=== PATIENT | female | born 1965 | race Two or more races ===

== ENCOUNTER 2025-01-08 12:45 | Emergency (ER) | payer MEDICAID, SELFPAY ==
[2025-01-08 12:46] VITALS: BMI 21.1
--- NOTE | 2025-01-08 13:04 | XR_ITS ---
Examination: Foot bilateral, 6 views Technique: AP, oblique, lateral views each foot total 6 views Date and time of exam: January 08, 2025 1307 hours INDICATIONS: Bilateral foot swelling and pain beginning 2 weeks ago. FINDINGS: Severe osteopenia Soft tissue vascular calcification Advanced narrowing first metatarsophalangeal joints bilaterally Bilateral pes planus No gema cortical bone obstruction IMPRESSION: Severe osteopenia No gema cortical bone destruction No acute fractures Severe pes planus
[2025-01-08 13:05] VITALS: BP 191/109; BP 199/129; PULSE 102; RESP 16; TEMP 36.9; O2SAT 99
--- NOTE | 2025-01-08 13:05 | PD.EDRME ---
Rapid Medical Screening Exam RME Arrival date/time: 01/08/25 12:45 59-year-old female with a history of type 2 diabetes, hypertension, hyperlipidemia presents to the emergency room with a chief complaint of bilateral diabetic foot ulcers. Patient was sent by her primary care provider to rule out osteomyelitis. I have greeted and performed a focused initial assessment of this patient. A comprehensive ED assessment and evaluation of the patient, analysis of all test results, and completion of the medical decision making process will be conducted by additional ED providers. Chief Complaint: Extremity Problem,Nontraumatic Time Seen by Provider: 01/08/25 12:52 Vital signs reviewed by provider: Yes
[2025-01-08 13:47] LABS: Basophils # (Auto) 0.1 Thou/mm3 (0.0-0.2); Basophils % (Auto) 1 % (0-2.5); Eosinophils # (Auto) 0.4 Thou/mm3 (0.0-0.5); Eosinophils % (Auto) 3 % (0-10); Hematocrit 33.5 % (36.0-46.0); Hemoglobin 11.3 g/dL (12.0-16.0); Immature Granulocytes % (Auto) 0 % (0-0); Immature Granulocytes Auto 0.04 Thou/mm3 (0.00-0.00); Lymphocytes # (Auto) 3.5 Thou/mm3 (1.0-4.8); Lymphocytes % (Auto) 27 % (10-50); Mean Corpuscular HGB Conc 33.7 g/dl (31.0-37.0); Mean Corpuscular Hemoglobin 28.8 pg (25.0-35.0); Mean Corpuscular Volume 86 fL (80-100); Monocytes # (Auto) 0.5 Thou/mm3 (0.0-0.8); Monocytes % (Auto) 4 % (0-12); Neutrophils # (Auto) 8.8 Thou/mm3 (1.8-7.7); Neutrophils % (Auto) 66 % (37-80); Nucleated Red Blood Cell % 0 /100 WBC (0); Platelet Count 424 Thou/mm3 (140-440); RDW Standard Deviation 39.2 fL (36.4-46.3); Red Blood Count 3.92 Miln/mm3 (4.00-5.20); White Blood Count 13.3 Thou/mm3 (3.6-11.0)
[2025-01-08 14:03] LABS: Collection Type, Urine Clean Catch
--- NOTE | 2025-01-08 14:14 | PC.NURSE ---
nax1 1400
[2025-01-08 14:17] LABS: Sed Rate (ESR) 92 mm/hr (0-30)
[2025-01-08 14:18] LABS: Alanine Aminotransferase < 7 U/L (10-49); Albumin, Serum 4.9 gm/dL (3.5-5.0); Albumin/Globulin Ratio 1.4 (1.2-2.2); Alkaline Phosphatase 124 U/L (46-116); Anion Gap 10 (7-16); Aspartate Amino Transferase 11 U/L (0-34); BUN/Creatinine Ratio 17 Ratio (12-20); Bilirubin,Total 0.6 mg/dL (0.3-1.2); Blood Urea Nitrogen 15 mg/dL (9-23); C-Reactive Protein 2.1 mg/dL (0.0-0.9); Calcium 10.3 mg/dL (8.3-10.6); Calcium (Corrected) 10.3 mg/dL (8.5-10.1); Carbon Dioxide 24.9 mMol/L (20.0-31.0); Chloride 102 mMol/L (98-107); Creatinine (Component) 0.9 mg/dL (0.6-1.3); Estimated Creatinine Clearance 48.3 mL/min (>60); Globulin 3.6 gm/dL (2.3-3.5); Glucose 200 mg/dL (74-106); Osmolality,Calculated 280 (275-295); Potassium 3.6 mMol/L (3.4-5.1); Procalcitonin 0.07 ng/ml (0.0-0.49); Sodium 137 mMol/L (136-145); Total Protein 8.5 gm/dL (5.7-8.2); eGFR > 60 See Note
[2025-01-08 14:28] LABS: Bacteria,Urine 4+; Bilirubin,Urine Negative (Negative); Blood,Urine 1+ (Negative); Clarity,Urine Turbid (Clear/Hazy); Color,Urine Lt-Yellow (Lt Yel-Yel); Glucose, Urine 2+ (Negative); Ketones,Urine Negative (Negative); Leukocyte Esterase,Urine Positive (Negative); Nitrite,Urine Negative (Negative); Protein,Urine 2+ (Neg - Trace); RBC,Urine 18 /hpf (0-3); Specific Gravity,Urine 1.009 (1.001-1.035); Squamous Epithelial Cell,Urine 33 /hpf (0-5); Urobilinogen,Urine Negative mg/dL (0.0-1.0); WBC,Urine 440 /hpf (0-5)
[2025-01-08 15:17] VITALS: BP 171/95; PULSE 99
[2025-01-08] MEDS: cloNIDine HCL 0.1 MG TABLET PO (15:17)
--- NOTE | 2025-01-08 16:25 | XR_ITS ---
Examination: CTA abdominal aorta iliofemoral runoff. 2-D sagittal coronal reconstructions. 3-D reconstructions, vascular 25 1833 hrs. Indications: Left leg nonhealing ulcers this week Technique: Multiple CTA images of the abdominal aorta iliofemoral runoff arterial vessels, 2.0 mm slice thickness, post intravenous administration 100 cc [id number] 2-D sagittal coronal reconstructions. 3-D reconstructions, vascular 3-D postprocessing, including vascular maximum intensity projection images, 3-D volume rendering Low dose protocols were performed. One or more of the following dose reduction techniques were used; automated exposure control, adjustment of the mA and/or KV according to patient size, use of iterative reconstruction technique. Findings: Fatty liver Suspicious for small gallstones Common bile duct is enlarged 10 mm No pancreatic or adrenal mass No hydronephrosis Abdominal aorta is not enlarged 70% stenosis proximal right renal artery No bowel obstruction No pericecal inflammatory change 3 cm fat-containing umbilical hernia Air in the urinary bladder Atrophic uterus Intact common iliac and external iliac and common femoral arteries 90% stenosis proximal right superficial femoral artery 70% stenosis mid right superficial femoral artery 90% stenosis mid to distal right superficial femoral artery Occlusion over 15 mm distal right superficial femoral artery and a more distal total occlusion and short segment Attenuated popliteal artery Occlusion origins right anterior tibial and posterior tibial arteries with multiple occlusions throughout all 3 trifurcation arterial vessels 90% stenosis proximal left superficial femoral artery 90% stenosis mid left superficial femoral artery 10 mm occlusion distal left superficial femoral artery Attenuated popliteal artery Occlusions at the origins of both left anterior tibial posterior tibial arteries with multiple total occlusions throughout the trifurcation vessels Impression: Multiple high-grade stenoses superficial femoral arteries Severe multiple occlusions right and left anterior tibial posterior tibial and main continuation trunk 70% stenosis proximal right renal artery Suspicious for gallstones with enlarged common bile duct 10 mm, recommend hepatobiliary sonography follow-up
--- NOTE | 2025-01-08 16:26 | EDNOTE_ITS ---
ED Extremity Problem RME/HPI General Chief complaint: Extremity Problem,Nontraumatic Stated complaint: LEFT FOOT CELLULITIS, R/O OSTEO SENT BY MD Time Seen by Provider: 01/08/25 12:52 Arrival date/time: 01/08/25 12:45 RME / HPI RME / HPI Narrative: 59-year-old female with a history of type 2 diabetes, hypertension, hyperlipidemia presents to the emergency room with a chief complaint of bilateral diabetic foot ulcers more on the third and fourth toes on the left. Is been ongoing for more than 2 weeks. Patient denies trauma. Denies any other complaints no medication was taken prior to arrival. Patient was sent by her primary care provider to rule out osteomyelitis. Patient denies any fever. Patient is ambulatory Related Data Previous Rx's ?Medication ?Instructions ?Recorded ondansetron HCl 4 mg tablet 4 mg PO QID PRN nausea and 09/24/19 (Zofran) vomiting #14 tabs ibuprofen 600 mg tablet 600 mg PO TID #30 tabs 01/07 oxycodone-acetaminophen 5 mg-325 1 tab PO Q6H PRN pain , severe #10 01/07/22 mg tablet (Percocet) tabs acetaminophen 300 mg-codeine 30 mg 1 tab PO BID PRN pa in #20 tabs 01/08/25 tablet doxycycline hyclate 100 mg tablet 100 mg PO BID #20 ta bs 01/08/25 pentoxifylline 400 mg 400 mg PO TID #30 tabs 01/08 tablet,extended release Allergies Allergy/AdvReac Type Severity Reaction Status Date / Time codeine AdvReac Mild VOMITS Verified 01/08/25 12:47 Review of Systems Review of Systems Narrative Review of Systems: Review of system reviewed and within normal limits except mentioned in HPI ED Exam Narrative Physical exam: VITAL SIGNS: Reviewed. GENERAL APPEARANCE: Alert and interactive, follows commands, no acute distress, HEAD AND FACE: Non-traumatic. ENT: PERRL, pink conjunctivitis, eyelid no trauma, Mucous membrane moist. 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 CHEST: No tenderness, no crepitus, no paradoxical movement, no retractions. LUNGS: Clear, well ventilated, symmetric, no rales, no wheezing, no ronchi, no stridor, good breath sounds bilaterally. HEART: Regular rate, regular rhythm, no murmur, no gallops. ABDOMEN: Soft, positive bowel sounds, nondistended, no guarding, nontender, no rebound, no masses, RECTAL: Deferred. GENITAL: Deferred. NEUROLOGICAL: Gross motor function intact sensory function intact, Appropriate for age. MUSCULOSKELETAL: low back nontender, full range of motion. EXTREMITIES: Bilateral foot colder to touch as compared to the leg, multiple chronic changes on the skin and toes on the bilateral foot, chronic wound noted on the third and fourth toes left no gangrene noted nontender, full range of motion. Capillary refill is sluggish. SKIN: Color pink, dry, no rash, no lacerations, no abrasions, no contusions. LYMPHATICS: Deferred. Course Quality Measures none Orders Category Date Time Status CT Screening NOW Care 01/08/25 16:[address] angio abd ilio fem runoff Stat Exams 01/08/25 16:25 Completed XR foot comp BI min 3V Stat Exams 01/08/25 13:04 Completed Blood Culture (Lab) Stat Lab 01/08/25 13:36 Received CBC Stat Lab 01/08/25 13:36 Completed CMP [Comprehensive Metabolic Panel] Stat Lab 01/08/25 13:36 Completed CRP [C-Reactive Protein] Stat Lab 01/08/25 13:36 Completed ESR [Sed Rate (ESR)] Stat Lab 01/08/25 13:36 Completed Lactate (Lactic Acid) Stat Lab 01/08/25 13:36 Completed Procalcitonin Stat Lab 01/08/25 13:36 Completed UA [Urinalysis] Stat Lab 01/08/25 13:45 Completed Urine Culture Stat Lab 01/08/25 13:45 Received Piper/Tazo 3.375 gm [Zosyn] Med 01/08/25 16:26 Discontinued 3.375 gm in 50 ml IV X1 Vancomycin Inj 1,000 mg Med 01/08/25 16:25 Discontinued Sodium Chloride 0.9% 250 ml [Ns] 250 ml IV X1 cloNIDine HCL [Catapres] Med 01/08/25 13:04 Discontinued 0.1 mg PO X1 ONE Vital Signs Vital signs: Vital Signs Temperature 98.5 F 01/08/25 13:05 Pulse Rate 102 H 01/08/25 13:05 Respiratory Rate 16 01/08/25 13:05 Blood Pressure 199/129 H 01/08/25 13:05 Pulse Oximetry (%) 99 01/08/25 13:05 Oxygen Delivery Method Room Air 01/08/25 13:05 Extremity Problem [facility] Narrative MDM Narrative:: 59-year-old female with a history of type 2 diabetes, hypertension, hyperlipidemia presents to the emergency room with a chief complaint of bilateral diabetic foot ulcers more on the third and fourth toes on the left. Is been ongoing for more than 2 weeks. Patient denies trauma. Denies any other complaints no medication was taken prior to arrival. Patient was sent by her primary care provider to rule out osteomyelitis. Patient denies any fever. Patient is ambulatory CBC showed leukocytosis of 13.3 ESR of 92 creatinine was noted to be normal C- reactive protein 2.1 urinalysis positive for UTI versus dirty collection due to abundant epithelial cells. X-ray of the foot showed Severe osteopenia No gema cortical bone destruction No acute fractures Severe pes planus CTA of the abdomen with iliofemoral runoff showed Multiple high-grade stenoses superficial femoral arteries Severe multiple occlusions right and left anterior tibial posterior tibial and main continuation trunk 70% stenosis proximal right renal artery Suspicious for gallstones with enlarged common bile duct 10 mm, recommend hepatobiliary sonography follow-up Patient was given copy of her CT and angiogram of the abdomen with iliofemoral runoff and advised her to closely follow-up with PCP tomorrow and for referral to vascular surgeon for further management of the multiple arterial occlusions. Currently patient's foot is not cold or ischemic. Patient will be sent home on antibiotic for foot infection. Patient stable for discharge home. Patient data External records reviewed:: None Clinical information provided by:: patient and family Social determinants that could affect healthcare access:: none Patient has the following chronic illnesses:: Diabetes mellitus, hypertension How is presenting disease/condition affected by chronic disease/condition?: e xacerbated by Evaluation data The following diagnostics were reviewed and interpreted by me:: lab results, radiology exam(s) and EKG tracing(s) Lab and/or radiology exams considered but not ordered:: None Interpretation Summary: See results in MDM Medications / Prescriptions Medications or Prescriptions considered but not ordered:: None Medication administrations:: Medication Administration History Discontinued Medications Clonidine (Clonidine Hcl 0.1 Mg Tablet) 0.1 mg PO X1 ONE Stop: 01/08/25 13:05 Last Admin: 01/08/25 15:17 Dose: 0.1 mg Documented By: OA Vancomycin HCl 1,000 mg/ (Sodium Chloride) 250 mls @ 150 mls/hr IV X1 ONE Stop: 01/08/25 18:04 Last Admin: 01/08/25 17:53 Dose: 150 mls/hr Documented By: ED Piperacillin/Tazobactam/Dextrose (Zosyn) 3.375 gm in 50 mls @ 100 mls/hr IV X1 ONE Stop: 01/08/25 16:55 Last Infusion: 01/08/25 17:42 Dose: Infused Documented By: Admin: 01/08/25 17:08 Dose: 100 mls/hr Documented By: RD IV Zosyn and Vanco IV. Patient was also given Procardia and clonidine. Consultations Consultation(s) initiated? (list below): No Diagnosis Extremity Problem Differential Diagnosis: other (Diabetic foot infection, peripheral arterial disease,) Most likely diagnosis given after review of the tests above:: Diabetic foot infection, peripheral arterial disease Admission Indicated Admission indicated?: not indicated Explain why admission is indicated or not indicated:: Stable Admission Request Was there a request for admission?: No Disposition Plan Disposition Plan: Discharge Discharge Attestation Discharge Attestation: The patient and all family members were given an opportunity to ask questions and understood the discharge instructions. Discharge instructions specifically effects, indications for sooner follow up or return to the emergency department, and the expected course of current diagnosis. Patient condition: Stable Discharge Plan Plan Patient Disposition: HOME (Self Care) Disposition Comment: stable Prescriptions/Referrals Prescriptions/Med Rec: New doxycycline hyclate 100 mg tablet 100 mg PO BID Qty: 20 0RF pentoxifylline 400 mg tablet extended release 400 mg PO TID Qty: 30 0RF Rx Instructions: must administer with a meal/food acetaminophen-codeine 300-30 mg tablet 1 tab PO BID PRN (Reason: pain) Qty: 20 0RF No Action ondansetron HCl [Zofran] 4 mg tablet 4 mg PO QID PRN (Reason: nausea and vomiting) Qty: 14 0RF ibuprofen 600 mg tablet 600 mg PO TID Qty: 30 0RF oxycodone-acetaminophen [Percocet] 5-325 mg tablet 1 tab PO Q6H MDD 4 PRN (Reason: pain, severe) Qty: 10 0RF Referrals: Sukhdev Rogers MD [Primary Care Provider] - In 1 week Problem List Clinical Impression: Diabetic foot infection, Peripheral arterial disease Patient/Caregiver Discharge Instructions Discharge Activity: activity as tolerated Education Materials: Diabetes PAD Additional Instructions: Thank you for the opportunity for serving you today. You are stable for discharged . You are advised to: Follow-up with your PCP in 1 to 2 days and asked for referral to vascular surgeon and director diabetes Return to ED for worsening of symptoms Increase oral fluids Take medication as prescribed Print Language: Greek Stand Alone Forms: Korin Award Info., Patient Portal Info Letter PA/PICTURES EDITOR Supervising Physician PA/PICTURES EDITOR Supervising Physician: MD Ifrah
[2025-01-08 16:33] VITALS: BP 157/93; PULSE 100; RESP 14; TEMP 36.8; O2SAT 96
[2025-01-08] MEDS: PIPER/TAZO 3.375 GM 3.375 GM/50 ML BAG IV (17:08)
[2025-01-08] MEDS: Vancomycin Inj 1,000 MG in SODIUM CHLORIDE 0.9% 250 ML 250 ML 150 MG IV (17:53)
--- NOTE | 2025-01-08 18:07 | PC.NURSE ---
Pt. here to room 8 pt. states she has had edema to left foot X 2 weeks, pt. has +2 pitting edema to left foot, pt. has a wound with canas colored drainage that is foul smelling.
[2025-01-08 18:23] VITALS: BP 119/67; PULSE 75; RESP 16; TEMP 36.7; O2SAT 96
[2025-01-08 20:39] VITALS: BP 152/87; PULSE 93; RESP 14; TEMP 36.8; O2SAT 97
== END 2025-01-08 20:40 | disposition home or self-care (01) ==
PROVIDERS: Nurse Practitioner Family; Emergency Provider Emergency Medicine; PCP Family Medicine
DX: E11.628 Type 2 diabetes mellitus with other skin complications (principal); L08.9 Local infection of the skin and subcutaneous tissue, unspecified; E11.51 Type 2 diabetes mellitus with diabetic peripheral angiopathy without gangrene; I70.203 Unspecified atherosclerosis of native arteries of extremities, bilateral legs; M85.879 Other specified disorders of bone density and structure, unspecified ankle and foot; M21.40 Flat foot [pes planus] (acquired), unspecified foot; I70.1 Atherosclerosis of renal artery; I10 Essential (primary) hypertension; H54.62 Unqualified visual loss, left eye, normal vision right eye
CPT/HCPCS: 36415; 73630; 75635; 80053; 81001; 83605; 84145; 85025; 85652; 86140; 87040; 87077; 87086; 87186; 96365; 96366; 96367; 99285; A4649; J2543; J3371; J7050; Q9967; A9270

== ENCOUNTER → 2025-02-20 | Outpatient (CLI) | payer MEDICAID, SELFPAY | END | disposition home or self-care (01) | PROVIDERS: PCP Surgery Vascular Surgery; Referring Provider Surgery Vascular Surgery; Visit Provider Surgery | DX: I96 Gangrene, not elsewhere classified (principal); L97.522 Non-pressure chronic ulcer of other part of left foot with fat layer exposed; S91.301A Unspecified open wound, right foot, initial encounter; S91.302A Unspecified open wound, left foot, initial encounter; X58.XXXA Exposure to other specified factors, initial encounter; E11.40 Type 2 diabetes mellitus with diabetic neuropathy, unspecified; I10 Essential (primary) hypertension; I73.9 Peripheral vascular disease, unspecified; E11.52 Type 2 diabetes mellitus with diabetic peripheral angiopathy with gangrene; Z79.84 Long term (current) use of oral hypoglycemic drugs; R60.0 Localized edema | CPT/HCPCS: 11042; 99212; A9270; G0463 ==

== ENCOUNTER → 2025-02-23 | Outpatient (CLI) | payer MEDICAID, SELFPAY ==
--- NOTE | 2025-02-23 12:00 | XR_ITS ---
Examination: Foot bilateral, 6 views Technique: AP, oblique, lateral views each foot total 6 views Date and time of exam: February 23, 2025 1327 hours INDICATIONS: Nonhealing wounds both right and left toes one month FINDINGS: Severe osteopenia Soft tissue vascular calcification Bilateral pes planus No gema cortical bone destruction IMPRESSION: No gema cortical bone destruction As clinically warranted, consider MRI right and left foot follow-up
== END | disposition home or self-care (01) ==
PROVIDERS: PCP Family Medicine; Referring Provider Surgery; Visit Provider Surgery
DX: E11.51 Type 2 diabetes mellitus with diabetic peripheral angiopathy without gangrene (principal); E11.621 Type 2 diabetes mellitus with foot ulcer
CPT/HCPCS: 73630

== ENCOUNTER → 2025-03-02 | Outpatient (CLI) | payer MEDICAID, SELFPAY | END | disposition home or self-care (01) | LOC: SWHD 10:08 | PROVIDERS: PCP Family Medicine; Referring Provider Family Medicine; Visit Provider Student in an Organized Health Care Education/Training Program | DX: I96 Gangrene, not elsewhere classified (principal); L97.522 Non-pressure chronic ulcer of other part of left foot with fat layer exposed; S91.301A Unspecified open wound, right foot, initial encounter; S91.302A Unspecified open wound, left foot, initial encounter; X58.XXXA Exposure to other specified factors, initial encounter; E11.40 Type 2 diabetes mellitus with diabetic neuropathy, unspecified; I10 Essential (primary) hypertension; I73.9 Peripheral vascular disease, unspecified; E11.52 Type 2 diabetes mellitus with diabetic peripheral angiopathy with gangrene; Z79.84 Long term (current) use of oral hypoglycemic drugs; R60.0 Localized edema | CPT/HCPCS: 11042; A9270 ==

== ENCOUNTER → 2025-03-11 | Outpatient (CLI) | payer MEDICAID, SELFPAY | END | disposition home or self-care (01) | LOC: SWHD 12:50 | PROVIDERS: PCP Family Medicine; Referring Provider Family Medicine; Visit Provider Student in an Organized Health Care Education/Training Program | DX: I96 Gangrene, not elsewhere classified (principal); R60.0 Localized edema; L97.522 Non-pressure chronic ulcer of other part of left foot with fat layer exposed; S91.301A Unspecified open wound, right foot, initial encounter; S91.302A Unspecified open wound, left foot, initial encounter; X58.XXXA Exposure to other specified factors, initial encounter; E11.40 Type 2 diabetes mellitus with diabetic neuropathy, unspecified; E11.52 Type 2 diabetes mellitus with diabetic peripheral angiopathy with gangrene; Z79.84 Long term (current) use of oral hypoglycemic drugs | CPT/HCPCS: 17250; A9270 ==

== ENCOUNTER → 2025-03-17 | Outpatient (CLI) | payer MEDICAID, SELFPAY ==
--- NOTE | 2025-03-17 15:21 | XR_ITS ---
Examination: Foot bilateral, 6 views Technique: AP, oblique, lateral views each foot total 6 views Date and time of exam: March 17, 2025 1524 hours INDICATIONS: Bilateral foot pain one month. FINDINGS: Severe osteopenia Diffuse advanced narrowing intertarsal tarsometatarsal joints bilaterally Severe pes planus Advanced narrowing bilateral first metatarsophalangeal joints No erosive arthritis Soft tissue vascular calcification IMPRESSION: Severe pes planus Diffuse advanced narrowing intertarsal and tarsal metatarsal joints bilaterally No erosive arthritis
== END | disposition home or self-care (01) ==
PROVIDERS: PCP Family Medicine; Referring Provider Family Medicine; Visit Provider Family Medicine
DX: M21.42 Flat foot [pes planus] (acquired), left foot (principal); M21.41 Flat foot [pes planus] (acquired), right foot; M25.872 Other specified joint disorders, left ankle and foot; M25.871 Other specified joint disorders, right ankle and foot
CPT/HCPCS: 73630

== ENCOUNTER → 2025-03-20 | Outpatient (CLI) | payer MEDICAID, SELFPAY | END | disposition home or self-care (01) | LOC: SWHD 09:26 | PROVIDERS: PCP Family Medicine; Referring Provider Family Medicine; Visit Provider Surgery | DX: I96 Gangrene, not elsewhere classified (principal); E11.621 Type 2 diabetes mellitus with foot ulcer; L97.522 Non-pressure chronic ulcer of other part of left foot with fat layer exposed; S91.301A Unspecified open wound, right foot, initial encounter; S91.302A Unspecified open wound, left foot, initial encounter; X58.XXXA Exposure to other specified factors, initial encounter; E11.40 Type 2 diabetes mellitus with diabetic neuropathy, unspecified; R60.0 Localized edema; Z79.84 Long term (current) use of oral hypoglycemic drugs | CPT/HCPCS: 99214; A9270; G0463 ==

== ENCOUNTER → 2025-03-27 | Outpatient (CLI) | payer MEDICAID, SELFPAY | END | disposition home or self-care (01) | LOC: SWHD 10:48 | PROVIDERS: PCP Family Medicine; Referring Provider Family Medicine; Visit Provider Physician Assistant | DX: I96 Gangrene, not elsewhere classified (principal); E11.621 Type 2 diabetes mellitus with foot ulcer; S91.301A Unspecified open wound, right foot, initial encounter; S91.302A Unspecified open wound, left foot, initial encounter; X58.XXXA Exposure to other specified factors, initial encounter; E11.40 Type 2 diabetes mellitus with diabetic neuropathy, unspecified; R60.0 Localized edema; Z79.84 Long term (current) use of oral hypoglycemic drugs | CPT/HCPCS: 99213; A9270; G0463 ==

== ENCOUNTER 2025-04-24 11:59 | Outpatient (RCR) | payer MEDICAID, SELFPAY | END 2025-04-25 23:59 | disposition home or self-care (01) | LOC: SWHD 11:59 | PROVIDERS: PCP Family Medicine; Referring Provider Family Medicine; Visit Provider Physician Assistant | DX: I96 Gangrene, not elsewhere classified (principal); E11.621 Type 2 diabetes mellitus with foot ulcer; S91.301A Unspecified open wound, right foot, initial encounter; S91.302A Unspecified open wound, left foot, initial encounter; X58.XXXA Exposure to other specified factors, initial encounter; E11.40 Type 2 diabetes mellitus with diabetic neuropathy, unspecified; R60.0 Localized edema; Z79.84 Long term (current) use of oral hypoglycemic drugs | CPT/HCPCS: 97597; 11042; 82962; 99212; 99214; A9270; G0277; G0463 ==

== ENCOUNTER 2025-05-25 09:32 | Outpatient (RCR) | payer MEDICAID, SELFPAY | END 2025-05-25 23:59 | disposition home or self-care (01) | LOC: SWHD 09:32 | PROVIDERS: PCP Family Medicine; Referring Provider Family Medicine; Visit Provider Student in an Organized Health Care Education/Training Program | DX: I96 Gangrene, not elsewhere classified (principal); E11.621 Type 2 diabetes mellitus with foot ulcer; S91.301A Unspecified open wound, right foot, initial encounter; S91.302A Unspecified open wound, left foot, initial encounter; X58.XXXA Exposure to other specified factors, initial encounter; E11.40 Type 2 diabetes mellitus with diabetic neuropathy, unspecified; R60.0 Localized edema; Z79.84 Long term (current) use of oral hypoglycemic drugs | CPT/HCPCS: 17250; 97597; 11044; 82962; 99214; A9270; G0277; G0463 ==

== ENCOUNTER 2025-06-10 14:14 | Emergency (ER) | payer MEDICAID, SELFPAY ==
[2025-06-10 14:26] VITALS: BP 122/76; PULSE 116; RESP 18; TEMP 36.7; O2SAT 100
--- NOTE | 2025-06-10 14:29 | XR_ITS ---
Examination: Foot bilateral, 6 views Technique: AP, oblique, lateral views each foot total 6 views Date and time of exam: June 10, 2025 1455 hours Comparison March 17, 2025 INDICATIONS: Redness swelling and pain involving both feet 4 months, nonhealing ulcer left third and fourth digits FINDINGS: Severe osteopenia Soft tissue vascular calcification No gema cortical bone destruction involving either foot No foreign bodies Bilateral pes planus IMPRESSION: No gema cortical bone destruction involving either foot Consider MRI feet without contrast follow-up as clinically warranted
--- NOTE | 2025-06-10 14:31 | PD.EDRME ---
Rapid Medical Screening Exam RME Arrival date/time: 06/10/25 14:14 59-year-old female with diabetes presents for concerns for bilateral feet infections patient has been seen by PCP has had multiple admissions to [facility] and has seen Dr. Lance Chief Complaint: Ankle/Foot Injury Vital signs: Vital Signs Temperature 98.0 F 06/10/25 14:26 Pulse Rate 116 H 06/10/25 14:26 Respiratory Rate 18 06/10/25 14:26 Blood Pressure 122/76 06/10/25 14:26 Pulse Oximetry (%) 100 06/10/25 14:26 Oxygen Delivery Method Room Air 06/10/25 14:26
[2025-06-10 15:02] LABS: Lactate (Lactic Acid) 3.7 mMol/L (0.4-2.0)
[2025-06-10 15:11] LABS: Basophils # (Auto) 0.0 Thou/mm3 (0.0-0.2); Basophils % (Auto) 0 % (0-2.5); Eosinophils # (Auto) 0.2 Thou/mm3 (0.0-0.5); Eosinophils % (Auto) 2 % (0-10); Hematocrit 28.7 % (36.0-46.0); Hemoglobin 9.4 g/dL (12.0-16.0); Immature Granulocytes Auto 0.03 Thou/mm3 (0.00-0.00); Lymphocytes # (Auto) 3.1 Thou/mm3 (1.0-4.8); Lymphocytes % (Auto) 31 % (10-50); Mean Corpuscular HGB Conc 32.8 g/dl (31.0-37.0); Mean Corpuscular Hemoglobin 30.4 pg (25.0-35.0); Mean Corpuscular Volume 93 fL (80-100); Monocytes # (Auto) 0.6 Thou/mm3 (0.0-0.8); Monocytes % (Auto) 6 % (0-12); Neutrophils # (Auto) 6.2 Thou/mm3 (1.8-7.7); Neutrophils % (Auto) 61 % (37-80); Nucleated Red Blood Cell # 0.00 Thou/mm3 (0.00-0.00); Nucleated Red Blood Cell % 0 /100 WBC (0); Platelet Count 500 Thou/mm3 (140-440); RDW Standard Deviation 45.7 fL (36.4-46.3); Red Blood Count 3.09 Miln/mm3 (4.00-5.20); White Blood Count 10.2 Thou/mm3 (3.6-11.0)
[2025-06-10 15:42] LABS: Alanine Aminotransferase < 7 U/L (10-49); Albumin, Serum 4.7 gm/dL (3.5-5.0); Albumin/Globulin Ratio 1.6 (1.2-2.2); Alkaline Phosphatase 76 U/L (46-116); Anion Gap 15 (7-16); Aspartate Amino Transferase 19 U/L (0-34); BUN/Creatinine Ratio 10 Ratio (12-20); Bilirubin,Total 0.5 mg/dL (0.3-1.2); Blood Urea Nitrogen 10 mg/dL (9-23); C-Reactive Protein < 0.5 mg/dL (0.0-0.9); Calcium 10.1 mg/dL (8.3-10.6); Calcium (Corrected) 10.1 mg/dL (8.5-10.1); Carbon Dioxide 22.0 mMol/L (20.0-31.0); Chloride 103 mMol/L (98-107); Creatinine (Component) 1.0 mg/dL (0.6-1.3); Globulin 3.0 gm/dL (2.3-3.5); Glucose 102 mg/dL (74-106); Osmolality,Calculated 278 (275-295); Potassium 4.6 mMol/L (3.4-5.1); Procalcitonin 0.06 ng/ml (0.0-0.49); Sodium 140 mMol/L (136-145); Total Protein 7.7 gm/dL (5.7-8.2); eGFR > 60 See Note
[2025-06-10 17:06] LABS: Sed Rate (ESR) 55 mm/hr (0-30)
[2025-06-10 17:16] LABS: INR 1.0 (0.9-1.3); Partial Thromboplastin Time 24.8 Seconds (22.0-36.0); Prothrombin Time 10.7 Seconds (9.0-12.2)
[2025-06-10 17:44] VITALS: BP 149/77; PULSE 118; RESP 18; TEMP 37; O2SAT 99
[2025-06-10 17:57] LABS: Reflex Lactate? Y
--- NOTE | 2025-06-10 18:20 | PC.NURSE ---
IN TO ASSESS PT. PT WITH C/O WORSENING DISCOLORATION TO THE LEFT FOOT. INSTRUCTED BY WOUND DR TO COME TO ED.
--- NOTE | 2025-06-10 18:21 | PD.EDANKLE ---
Lower Extremity Injury RME/HPI General Chief Complaint: Ankle/Foot Injury Stated Complaint: LEFT FOOT BLACK AND SWOLLEN X TUES; HX DIABETES Time Seen by Provider: 06/10/25 18:09 Arrival date/time: 06/10/25 14:14 RME / HPI RME / HPI Narrative: 06/10/25 14:14 59-year-old female with diabetes presents for concerns for bilateral feet infections patient has been seen by PCP has had multiple admissions to [facility] and has seen Dr. Lance --------- This section includes all my notes and documentations, including HPI, PE, and ED course. Raj Rg MD HPI: 59yo female with a history of DM presents to the ED for concerns of her left foot changing color since yesterday. Daughter noticed the patient's left foot turning darker than usual. Patient complained of worsening left foot pain and was sent over by the wound care center. Patient took Tylenol at the wound care center, which improved her pain. No fever. No other complaints reported. ROS: All negative except as documented in HPI. Physical Exam: General: Alert and oriented. No acute distress with remaining still. Eyes: Conjunctivae and lids clear. ENT: No nasal congestion. Neck: Supple. Heart: RRR. Lungs: No respiratory distress. Good air movement. No rhonchi, wheezing, rales. Abdomen: Soft and nontender. Skin: Warm and dry. Bilateral foot remarkable for multiple ulcer wounds and eschars, varying in size and shape and depth. Neuro: Alert and oriented X 3. I reviewed all diagnostic test results. My interpretation of the bilateral foot x-rays is NAD. My review of the CT angio abdomen ilio fem run off report is: - Severe occlusive disease both superficial femoral arteries - Severe occlusive disease bilateral popliteal arteries, bilateral anterior tibial posterior tibial and main continuation trunks Blood tests remarkable for ESR 55 and lactic Acid 3.7 (repeat 5.3 before treatment). At this point, diagnoses include arterial occlusion of lower extremity. Treatment here from the included Vancomycin, NS, Cefepime. Recommend transfer to another facility with vascular services. After patient and daughter (present) had discussion with son (Resident at [facility] in [place]) over the phone, she declined. She requested discharge for care with her doctors. Discussed potential risks, including worsening and losing them. Patient and family understood but still declined. Based on my best medical judgment, made decision no further evaluation or treatment indicated at this time. Patient understands and agrees to the discharge instructions customized and printed, see below. Discharge Instructions from Dr. Rg printed for you: 1. After evaluation, your arteries going into your legs are severely blocked. 2. Made recommendation to transfer to another facility with vascular services who can help you. 3. But since you declined and requested going home, you are being discharged. 4. We discussed potential serious risks, including losing feet and limbs. You understood but still requested going home. 5. See a private doctor on 06/11/2025 for recheck and further care. Ask to review all test results and official radiology reports, to make sure you receive all necessary follow-ups and monitoring. Ask for help getting treatment for your blocked arteries going into your legs. 6. Seek immediate medical care with any concerns. Raj Rg MD Related Data Previous Rx's ?Medication ?Instructions ?Recorded ondansetron HCl 4 mg tablet 4 mg PO QID PRN nausea and 09/24/19 (Zofran) vomiting #14 tabs ibuprofen 600 mg tablet 600 mg PO TID #30 tabs 01/07/22 oxycodone-acetaminophen 5 mg-325 1 tab PO Q6H PRN pain, severe #10 01/07/22 mg tablet (Percocet) tabs acetaminophen 300 mg-codeine 30 mg 1 tab PO BID PRN pain #20 tabs 01/08/25 tablet doxycycline hyclate 100 mg tablet 100 mg PO BID #20 tabs 01/08/25 pentoxifylline 400 mg 400 mg PO TID #30 tabs 01/08/25 tablet,extended release Allergies Allergy/AdvReac Type Severity Reaction Status Date / Time codeine AdvReac Mild VOMITS Verified 06/10/25 14:19 Review of Systems Review of Systems Systems Reviewed: All systems reviewed, normal except as documented Past Medical History Past Medical History CARDIAC: Positive Hypercholesterolemia and Hypertension; Negative Cardiac Disorders or Congestive Heart Failure RESPIRATORY: Negative Chronic Obstructive Pulmonary Disease (COPD) or Asthma GENITOURINARY: Negative Renal Disease ENDOCRINE: Positive Diabetes Mellitus Type 2; Negative Diabetes Mellitus Type 1 HEMATOLOGIC: Negative Sickle Cell Disease Social History SMOKING STATUS: Never smoker ED Exam Narrative Physical exam: As noted in HPI. Course Quality Measures none Orders Category Date Time Status CT Screening NOW Care 06/10/25 18:47 Completed Saline [Insert IV] NOW Care 06/10/25 18:[address] angio abd ilio fem runoff Stat Exams 06/10/25 18:46 Completed XR foot comp BI min 3V Stat Exams 06/10/25 14:29 Completed Blood Culture (Lab) Stat Lab 06/10/25 14:50 Received CBC Stat Lab 06/10/25 14:45 Completed CMP [Comprehensive Metabolic Panel] Stat Lab 06/10/25 14:45 Completed CRP [C-Reactive Protein] Stat Lab 06/10/25 14:45 Completed ESR [Sed Rate (ESR)] Stat Lab 06/10/25 14:45 Completed Lactic Acid [Lactate (Lactic Acid)] Stat Lab 06/10/25 14:45 Completed Lactic Acid, 3 HR Stat Lab 06/10/25 18:10 Completed PT [Prothrombin Time with INR] Stat Lab 06/10/25 16:25 Completed PTT [Partial Thromboplastin Time] Stat Lab 06/10/25 16:25 Completed Procalcitonin Stat Lab 06/10/25 14:45 Completed Urinalysis, C/S if Indicated Stat Lab 06/10/25 21:30 Completed Urine Culture Stat Lab 06/10/25 21:30 Received Cefepime Inj [Maxipime Inj] 1 gm Med 06/10/25 18:44 Discontinued SODIUM CHLORIDE 0.9% (Popper) [Ns 0.9% (P)] 50 ml IV X1 DiphenhydrAMINE [Benadryl] Med 06/10/25 18:44 Discontinued 50 mg PO X1 ONE Sodium Chloride 0.9% 1000 ml [Ns] 1,000 ml Med 06/10/25 18:44 Discontinued IV 999 mls/hr Vancomycin/Ns 1 gm Ivpb 200 ml Med 06/10/25 18:44 Discontinued IV X1 Vital Signs Vital signs: Vital Signs Temperature 98.0 F 06/10/25 14:26 Pulse Rate 116 H 06/10/25 14:26 Respiratory Rate 18 06/10/25 14:26 Blood Pressure 122/76 06/10/25 14:26 Pulse Oximetry (%) 100 06/10/25 14:26 Oxygen Delivery Method Room Air 06/10/25 14:26 Extremity Injury, Lower MDM Narrative MDM Narrative:: 59yo female with a history of DM presents to the ED for concerns of her left foot changing color since yesterday. Daughter noticed the patient's left foot turning darker than usual yesterday. Patient complained of worsening left foot pain and was sent over by the wound care center. Patient took Tylenol at the wound care center, which improved her pain. No fever. No other complaints reported. Patient data External records reviewed:: [facility] previous records (Per chart review, patient was seen here on 01/08/25 for diabetic foot infection.) Clinical information provided by:: patient and family Social determinants that could affect healthcare access:: none Patient has the following chronic illnesses:: DM, HTN, HLD How is presenting disease/condition affected by chronic disease/condition?: caused by Evaluation data The following diagnostics were reviewed and interpreted by me:: lab results and radiology exam(s) Lab and/or radiology exams considered but not ordered:: none Interpretation Summary: I reviewed all diagnostic test results. My interpretation of the bilateral foot x-rays is NAD. My review of the CT angio abdomen ilio fem run off report is: - Severe occlusive disease both superficial femoral arteries - Severe occlusive disease bilateral popliteal arteries, bilateral anterior tibial posterior tibial and main continuation trunks Blood tests remarkable for ESR 55 and lactic Acid 3.7 (repeat 5.3 before treatment). Medications / Prescriptions Medications or Prescriptions considered but not ordered:: none Medication administrations:: Medication Administration History Discontinued Medications Diphenhydramine HCl (Diphenhydramine 25 Mg Capsule) 50 mg PO X1 ONE Stop: 06/10/25 18:45 Last Admin: 06/10/25 20:27 Dose: Not Given Documented By: BD Non-Admin Reason: Cancelled by Provider Cefepime HCl 1 gm/ Sodium (Chloride) 50 mls @ 100 mls/hr IV X1 ONE Stop: 06/10/25 19:13 Last Infusion: 06/10/25 20:28 Dose: Infused Documented By: Admin: 06/10/25 20:01 Dose: 100 mls/hr Documented By: BD Sodium Chloride (Ns) 1,000 mls @ 999 mls/hr IV .Q1H1M ONE Stop: 06/10/25 19:44 Last Infusion: 06/10/25 21:25 Dose: Infused Documented By: Admin: 06/10/25 20:02 Dose: 999 mls/hr Documented By: BD Vancomycin/Sodium Chloride (Vancomycin/Ns 1 Gm Ivpb) 200 mls @ 120 mls/hr IV X1 ONE Stop: 06/10/25 20:23 Last Infusion: 06/10/25 22:17 Dose: Infused Documented By: Admin: 06/10/25 20:27 Dose: 120 mls/hr Documented By: DANELLE Vancomycin, NS, Cefepime from co. Consultations Consultation(s) initiated? (list below): No Diagnosis Extremity Injury, Lower Differential Diagnosis: ankle sprain and strain and other (Foot fracture, PAD, cellulitis, osteomyelitis) Most likely diagnosis given after review of the tests above:: Arterial occlusion of lower extremity Admission Indicated Admission indicated?: not indicated Explain why admission is indicated or not indicated:: Patient and family declined admission or transfer. Admission Request Was there a request for admission?: No Disposition Plan Disposition Plan: Discharge Discharge Attestation Discharge Attestation: The patient and all family members were given an opportunity to ask questions and understood the discharge instructions. Discharge instructions specifically effects, indications for sooner follow up or return to the emergency department, and the expected course of current diagnosis. Patient condition: Stable Discharge Plan Plan Patient Disposition: HOME (Self Care) Prescriptions/Referrals Prescriptions/Med Rec: No Action ondansetron HCl [Zofran] 4 mg tablet 4 mg PO QID PRN (Reason: nausea and vomiting) Qty: 14 0RF ibuprofen 600 mg tablet 600 mg PO TID Qty: 30 0RF oxycodone-acetaminophen [Percocet] 5-325 mg tablet 1 tab PO Q6H MDD 4 PRN (Reason: pain, severe) Qty: 10 0RF doxycycline hyclate 100 mg tablet 100 mg PO BID Qty: 20 0RF pentoxifylline 400 mg tablet extended release 400 mg PO TID Qty: 30 0RF Rx Instructions: must administer with a meal/food acetaminophen-codeine 300-30 mg tablet 1 tab PO BID PRN (Reason: pain) Qty: 20 0RF Referrals: Sukhdev Rogers MD [Primary Care Provider] - In 1 week Problem List Clinical Impression: Arterial occlusion, lower extremity Patient/Caregiver Discharge Instructions Discharge Activity: activity as tolerated Education Materials: ED Peripheral Artery Disease (PAD) Additional Instructions: Discharge Instructions from Dr. Rg printed for you: 1. After evaluation, your arteries going into your legs are severely blocked. 2. Made recommendation to transfer to another facility with vascular services who can help you. 3. But since you declined and requested going home, you are being discharged. 4. We discussed potential serious risks, including losing feet and limbs. You understood but still requested going home. 5. See a private doctor on 06/11/2025 for recheck and further care. Ask to review all test results and official radiology reports, to make sure you receive all necessary follow-ups and monitoring. Ask for help getting treatment for your blocked arteries going into your legs. 6. Seek immediate medical care with any concerns. Print Language: Thai Stand Alone Forms: [employer] Award Info., Patient Portal Info Letter
[2025-06-10 18:34] LABS: Lactic Acid, 3 HR 5.3 mMol/L (0.4-2.0)
--- NOTE | 2025-06-10 18:46 | XR_ITS ---
Examination: CTA abdominal aorta iliofemoral runoff. 2-D sagittal coronal reconstructions. 3-D reconstructions, vascular June 10, 2025, 1947 hours INDICATIONS: Lower leg swelling redness and swelling 6 months, left fourth digit gangrene Technique: Multiple CTA images of the abdominal aorta iliofemoral runoff arterial vessels, 2.0 mm slice thickness, post intravenous administration 130 cc Isovue 370 2-D sagittal coronal reconstructions. 3-D reconstructions, vascular 3-D postprocessing, including vascular maximum intensity projection images, 3-D volume rendering Low dose protocols were performed. One or more of the following dose reduction techniques were used; automated exposure control, adjustment of the mA and/or KV according to patient size, use of iterative reconstruction technique. Findings: No focal liver or splenic lesions No gallstones No hydronephrosis Negative for bowel obstruction No pericecal inflammatory change Urinary bladder intact Atrophic uterus Abdominal aortic calcification no aneurysmal dilatation Common iliac external iliac arteries are intact Occlusion of the proximal right superficial femoral artery With multiple critical stenoses and severe stenosis over 10 cm distal right superficial femoral artery Severe stenosis of the popliteal artery Multiple occlusions beginning proximally of the right right Multiple occlusions of the right anterior tibial posterior tibial and main continuation. Occlusion of the proximal left superficial femoral artery Total occlusion of the distal left superficial femoral artery extending over a distance of 20 cm, no significant filling of the left popliteal artery and severe occlusive disease involving the left anterior tibial and posterior tibial MA continuation trunk IMPRESSION: Severe occlusive disease both superficial femoral arteries Severe occlusive disease bilateral popliteal arteries, bilateral anterior tibial posterior tibial and main continuation trunks
[2025-06-10 19:13] VITALS: BP 179/101; PULSE 111; RESP 16; TEMP 37; O2SAT 100
[2025-06-10] MEDS: CEFEPIME INJ 1 GM in SODIUM CHLORIDE 0.9% (Popper) 50 ML IV (20:01)
[2025-06-10] MEDS: SODIUM CHLORIDE 0.9% 1000 ML 1,000 ML 999 ML IV (20:02)
[2025-06-10] MEDS: VANCOMYCIN/NS 1 GM IVPB 200 ML IV (20:27)
--- NOTE | 2025-06-10 20:31 | PC.NURSE ---
pt does not want in and out cath
[2025-06-10 21:00] VITALS: BP 157/86; PULSE 100; RESP 16; TEMP 37.2; O2SAT 100
[2025-06-10 21:59] LABS: Collection Type, Urine Clean Catch
--- NOTE | 2025-06-10 21:59 | PC.NURSE ---
IN AND OUT NOT DONE PT WAS ABLE TO URINATE ON OWN
[2025-06-10 22:04] VITALS: BP 158/93; PULSE 115; RESP 16; TEMP 36.9; O2SAT 100
[2025-06-10 22:24] LABS: Bilirubin,Urine Negative (Negative); Blood,Urine Negative (Negative); Clarity,Urine Clear (Clear/Hazy); Color,Urine Colorless (Lt Yel-Yel); Glucose, Urine Negative (Negative); Ketones,Urine Negative (Negative); Leukocyte Esterase,Urine Positive (Negative); Nitrite,Urine Negative (Negative); PH,Urine 6.5 (5.0-7.0); Protein,Urine Trace (Neg - Trace); RBC,Urine 2 /hpf (0-3); Specific Gravity,Urine 1.029 (1.001-1.035); Squamous Epithelial Cell,Urine 3 /hpf (0-5); Urobilinogen,Urine Negative mg/dL (0.0-1.0); WBC,Urine 23 /hpf (0-5)
[2025-06-10 22:25] LABS: Culture Indicated,Urine Yes
== END 2025-06-10 22:27 | disposition home or self-care (01) ==
PROVIDERS: Nurse Practitioner Primary Care; Emergency Provider Emergency Medicine; PCP Family Medicine
DX: I74.3 Embolism and thrombosis of arteries of the lower extremities (principal); I70.92 Chronic total occlusion of artery of the extremities
CPT/HCPCS: 36415; 73630; 75635; 80053; 81001; 83605; 84145; 85025; 85610; 85652; 85730; 86140; 87040; 87086; 96365; 96366; 99284; A4649; J0692; J3373; J7030; J7050; Q9967

== ENCOUNTER 2025-06-25 09:48 | Outpatient (RCR) | payer MEDICAID, SELFPAY | END 2025-06-25 23:59 | disposition home or self-care (01) | LOC: SWHD 09:48 | PROVIDERS: PCP Family Medicine; Referring Provider Family Medicine; Visit Provider Student in an Organized Health Care Education/Training Program | DX: I96 Gangrene, not elsewhere classified (principal); E11.621 Type 2 diabetes mellitus with foot ulcer; S91.301A Unspecified open wound, right foot, initial encounter; S91.302A Unspecified open wound, left foot, initial encounter; X58.XXXA Exposure to other specified factors, initial encounter; E11.40 Type 2 diabetes mellitus with diabetic neuropathy, unspecified; Z79.84 Long term (current) use of oral hypoglycemic drugs | CPT/HCPCS: 97597 ×2; 17250; 82962; 99214; A9270; G0277; G0463 ==

== ENCOUNTER → 2025-07-16 | Outpatient (CLI) | payer MEDICAID, SELFPAY | END | disposition home or self-care (01) | LOC: SWHD 13:57 | PROVIDERS: PCP Family Medicine; Referring Provider Family Medicine; Visit Provider Student in an Organized Health Care Education/Training Program | DX: I96 Gangrene, not elsewhere classified (principal); E11.621 Type 2 diabetes mellitus with foot ulcer; S91.301A Unspecified open wound, right foot, initial encounter; S91.302A Unspecified open wound, left foot, initial encounter; X58.XXXA Exposure to other specified factors, initial encounter; E11.40 Type 2 diabetes mellitus with diabetic neuropathy, unspecified; Z79.84 Long term (current) use of oral hypoglycemic drugs | CPT/HCPCS: 11042; A9270 ==

== ENCOUNTER 2025-07-24 14:21 | Outpatient (RCR) | payer MEDICAID, SELFPAY | END 2025-07-26 23:59 | disposition home or self-care (01) | LOC: SWHD 14:21 | PROVIDERS: PCP Family Medicine; Referring Provider Family Medicine; Visit Provider Student in an Organized Health Care Education/Training Program | DX: I96 Gangrene, not elsewhere classified (principal); S91.301A Unspecified open wound, right foot, initial encounter; S91.302A Unspecified open wound, left foot, initial encounter; X58.XXXA Exposure to other specified factors, initial encounter; E11.40 Type 2 diabetes mellitus with diabetic neuropathy, unspecified; Z79.84 Long term (current) use of oral hypoglycemic drugs | CPT/HCPCS: 17250; 11042; 82962; 99214; A9270; G0277; G0463 ==

== ENCOUNTER → 2025-07-31 | Outpatient (CLI) | payer MEDICAID, SELFPAY | END | disposition home or self-care (01) | LOC: SWHD 14:28 | PROVIDERS: PCP Family Medicine; Referring Provider Family Medicine; Visit Provider Surgery | DX: I96 Gangrene, not elsewhere classified (principal); E11.621 Type 2 diabetes mellitus with foot ulcer; S91.301A Unspecified open wound, right foot, initial encounter; S91.302A Unspecified open wound, left foot, initial encounter; X58.XXXA Exposure to other specified factors, initial encounter; E11.40 Type 2 diabetes mellitus with diabetic neuropathy, unspecified; Z79.84 Long term (current) use of oral hypoglycemic drugs | CPT/HCPCS: 99215; A9270; G0463 ==

== ENCOUNTER → 2025-08-06 | Outpatient (CLI) | payer MEDICAID, SELFPAY | END | disposition home or self-care (01) | LOC: SWHD 14:09 | PROVIDERS: PCP Family Medicine; Referring Provider Family Medicine; Visit Provider Student in an Organized Health Care Education/Training Program | DX: I96 Gangrene, not elsewhere classified (principal); S91.301A Unspecified open wound, right foot, initial encounter; S91.302A Unspecified open wound, left foot, initial encounter; X58.XXXA Exposure to other specified factors, initial encounter; E11.40 Type 2 diabetes mellitus with diabetic neuropathy, unspecified; Z79.84 Long term (current) use of oral hypoglycemic drugs | CPT/HCPCS: 11042; A9270 ==

== ENCOUNTER → 2025-08-13 | Outpatient (CLI) | payer MEDICAID, SELFPAY | END | disposition home or self-care (01) | LOC: SWHD 12:35 | PROVIDERS: PCP Family Medicine; Referring Provider Family Medicine; Visit Provider Student in an Organized Health Care Education/Training Program | DX: I96 Gangrene, not elsewhere classified (principal); S91.301A Unspecified open wound, right foot, initial encounter; S91.302A Unspecified open wound, left foot, initial encounter; X58.XXXA Exposure to other specified factors, initial encounter; E11.40 Type 2 diabetes mellitus with diabetic neuropathy, unspecified; Z79.84 Long term (current) use of oral hypoglycemic drugs | CPT/HCPCS: 11042; A9270 ==

== ENCOUNTER → 2025-08-21 | Outpatient (CLI) | payer MEDICAID, SELFPAY | END | disposition home or self-care (01) | LOC: SWHD 12:52 | PROVIDERS: PCP Family Medicine; Referring Provider Family Medicine; Visit Provider Physician Assistant | DX: I96 Gangrene, not elsewhere classified (principal); S91.301A Unspecified open wound, right foot, initial encounter; S91.302A Unspecified open wound, left foot, initial encounter; X58.XXXA Exposure to other specified factors, initial encounter; E11.40 Type 2 diabetes mellitus with diabetic neuropathy, unspecified; Z79.84 Long term (current) use of oral hypoglycemic drugs | CPT/HCPCS: 99214; A9270; G0463 ==

== ENCOUNTER → 2025-08-28 | Outpatient (CLI) | payer MEDICAID, SELFPAY | END | disposition home or self-care (01) | LOC: SWHD 15:07 | PROVIDERS: PCP Family Medicine; Referring Provider Family Medicine; Visit Provider Student in an Organized Health Care Education/Training Program | DX: I96 Gangrene, not elsewhere classified (principal); S91.301A Unspecified open wound, right foot, initial encounter; S91.302A Unspecified open wound, left foot, initial encounter; X58.XXXA Exposure to other specified factors, initial encounter; E11.40 Type 2 diabetes mellitus with diabetic neuropathy, unspecified; Z79.84 Long term (current) use of oral hypoglycemic drugs | CPT/HCPCS: 11042; A9270 ==

== ENCOUNTER → 2025-09-04 | Outpatient (CLI) | payer MEDICAID, SELFPAY | END | disposition home or self-care (01) | LOC: SWHD 14:48 | PROVIDERS: PCP Family Medicine; Referring Provider Family Medicine; Visit Provider Surgery | DX: I96 Gangrene, not elsewhere classified (principal); S91.301A Unspecified open wound, right foot, initial encounter; S91.302A Unspecified open wound, left foot, initial encounter; X58.XXXA Exposure to other specified factors, initial encounter; L97.522 Non-pressure chronic ulcer of other part of left foot with fat layer exposed; L97.512 Non-pressure chronic ulcer of other part of right foot with fat layer exposed; E11.40 Type 2 diabetes mellitus with diabetic neuropathy, unspecified; Z79.84 Long term (current) use of oral hypoglycemic drugs | CPT/HCPCS: 97597 ==

== ENCOUNTER → 2025-09-11 | Outpatient (CLI) | payer MEDICAID, SELFPAY | END | disposition home or self-care (01) | LOC: SWHD 14:56 | PROVIDERS: PCP Family Medicine; Referring Provider Family Medicine; Visit Provider Physician Assistant | DX: I96 Gangrene, not elsewhere classified (principal); S91.301A Unspecified open wound, right foot, initial encounter; S91.302A Unspecified open wound, left foot, initial encounter; X58.XXXA Exposure to other specified factors, initial encounter; L97.522 Non-pressure chronic ulcer of other part of left foot with fat layer exposed; L97.512 Non-pressure chronic ulcer of other part of right foot with fat layer exposed; E11.40 Type 2 diabetes mellitus with diabetic neuropathy, unspecified; Z79.84 Long term (current) use of oral hypoglycemic drugs | CPT/HCPCS: 99214; A9270; G0463 ==

== ENCOUNTER → 2025-09-18 | Outpatient (CLI) | payer MEDICAID, SELFPAY | END | disposition home or self-care (01) | LOC: SWHD 15:05 | PROVIDERS: PCP Family Medicine; Referring Provider Family Medicine; Visit Provider Surgery | DX: I96 Gangrene, not elsewhere classified (principal); S91.301A Unspecified open wound, right foot, initial encounter; S91.302A Unspecified open wound, left foot, initial encounter; X58.XXXA Exposure to other specified factors, initial encounter; L97.526 Non-pressure chronic ulcer of other part of left foot with bone involvement without evidence of necrosis; L97.512 Non-pressure chronic ulcer of other part of right foot with fat layer exposed; E11.40 Type 2 diabetes mellitus with diabetic neuropathy, unspecified; Z79.84 Long term (current) use of oral hypoglycemic drugs | CPT/HCPCS: 11044; A9270 ==

== ENCOUNTER → 2025-09-25 | Outpatient (CLI) | payer MEDICAID, SELFPAY | END | disposition home or self-care (01) | LOC: SWHD 15:11 | PROVIDERS: PCP Family Medicine; Referring Provider Family Medicine; Visit Provider Surgery | DX: I96 Gangrene, not elsewhere classified (principal); S91.302A Unspecified open wound, left foot, initial encounter; X58.XXXA Exposure to other specified factors, initial encounter; L97.522 Non-pressure chronic ulcer of other part of left foot with fat layer exposed; E11.40 Type 2 diabetes mellitus with diabetic neuropathy, unspecified; Z79.84 Long term (current) use of oral hypoglycemic drugs | CPT/HCPCS: 99213; A9270; G0463 ==

== ENCOUNTER → 2025-10-02 | Outpatient (CLI) | payer MEDICAID, SELFPAY | END | disposition home or self-care (01) | LOC: SWHD 14:25 | PROVIDERS: PCP Family Medicine; Referring Provider Family Medicine; Visit Provider Physician Assistant | DX: I96 Gangrene, not elsewhere classified (principal); S91.302A Unspecified open wound, left foot, initial encounter; X58.XXXA Exposure to other specified factors, initial encounter; L97.522 Non-pressure chronic ulcer of other part of left foot with fat layer exposed; E11.40 Type 2 diabetes mellitus with diabetic neuropathy, unspecified; Z79.84 Long term (current) use of oral hypoglycemic drugs | CPT/HCPCS: 99213; A9270; G0463 ==

== ENCOUNTER → 2025-10-08 | Outpatient (CLI) | payer MEDICAID, SELFPAY | END | disposition home or self-care (01) | LOC: SWHD 14:45 | PROVIDERS: PCP Family Medicine; Referring Provider Family Medicine; Visit Provider Student in an Organized Health Care Education/Training Program | DX: I96 Gangrene, not elsewhere classified (principal); S91.302A Unspecified open wound, left foot, initial encounter; X58.XXXA Exposure to other specified factors, initial encounter; L97.523 Non-pressure chronic ulcer of other part of left foot with necrosis of muscle; E11.40 Type 2 diabetes mellitus with diabetic neuropathy, unspecified; Z79.84 Long term (current) use of oral hypoglycemic drugs | CPT/HCPCS: 11043; A9270 ==

== ENCOUNTER → 2025-10-16 | Outpatient (CLI) | payer MEDICAID, SELFPAY | END | disposition home or self-care (01) | LOC: SWHD 14:06 | PROVIDERS: PCP Family Medicine; Referring Provider Family Medicine; Visit Provider Surgery | DX: I96 Gangrene, not elsewhere classified (principal); S91.302A Unspecified open wound, left foot, initial encounter; X58.XXXA Exposure to other specified factors, initial encounter; L97.523 Non-pressure chronic ulcer of other part of left foot with necrosis of muscle; E11.40 Type 2 diabetes mellitus with diabetic neuropathy, unspecified; Z79.84 Long term (current) use of oral hypoglycemic drugs | CPT/HCPCS: 97597; A9270 ==

== ENCOUNTER → 2025-10-29 | Outpatient (CLI) | payer MEDICAID, SELFPAY | END | disposition home or self-care (01) | PROVIDERS: PCP Family Medicine; Referring Provider Family Medicine; Visit Provider Student in an Organized Health Care Education/Training Program | DX: I96 Gangrene, not elsewhere classified (principal); S91.302A Unspecified open wound, left foot, initial encounter; X58.XXXA Exposure to other specified factors, initial encounter; L97.524 Non-pressure chronic ulcer of other part of left foot with necrosis of bone; E11.40 Type 2 diabetes mellitus with diabetic neuropathy, unspecified; Z79.84 Long term (current) use of oral hypoglycemic drugs | CPT/HCPCS: 11044; A9270 ==

== ENCOUNTER → 2025-11-06 | Outpatient (CLI) | payer MEDICAID, SELFPAY | END | disposition home or self-care (01) | LOC: SWHD 14:17 | PROVIDERS: PCP Family Medicine; Referring Provider Family Medicine; Visit Provider Student in an Organized Health Care Education/Training Program | DX: I96 Gangrene, not elsewhere classified (principal); S91.302A Unspecified open wound, left foot, initial encounter; X58.XXXA Exposure to other specified factors, initial encounter; L97.522 Non-pressure chronic ulcer of other part of left foot with fat layer exposed; E11.40 Type 2 diabetes mellitus with diabetic neuropathy, unspecified; Z79.84 Long term (current) use of oral hypoglycemic drugs | CPT/HCPCS: 11042; A9270 ==

== ENCOUNTER → 2025-11-13 | Outpatient (CLI) | payer MEDICAID, SELFPAY | END | disposition home or self-care (01) | LOC: SWHD 15:01 | PROVIDERS: PCP Family Medicine; Referring Provider Family Medicine; Visit Provider Surgery | DX: I96 Gangrene, not elsewhere classified (principal); S91.302A Unspecified open wound, left foot, initial encounter; X58.XXXA Exposure to other specified factors, initial encounter; L97.522 Non-pressure chronic ulcer of other part of left foot with fat layer exposed; E11.40 Type 2 diabetes mellitus with diabetic neuropathy, unspecified; Z79.84 Long term (current) use of oral hypoglycemic drugs | CPT/HCPCS: 11042; A9270 ==

== ENCOUNTER → 2025-11-20 | Outpatient (CLI) | payer MEDICAID, SELFPAY | END | disposition home or self-care (01) | LOC: SWHD 10:56 | PROVIDERS: PCP Family Medicine; Referring Provider Family Medicine; Visit Provider Surgery | DX: I96 Gangrene, not elsewhere classified (principal); S91.302A Unspecified open wound, left foot, initial encounter; X58.XXXA Exposure to other specified factors, initial encounter; L97.521 Non-pressure chronic ulcer of other part of left foot limited to breakdown of skin; E11.40 Type 2 diabetes mellitus with diabetic neuropathy, unspecified; Z79.84 Long term (current) use of oral hypoglycemic drugs | CPT/HCPCS: 97597; A9270 ==